=== PATIENT | male | born 1980 | race Caucasian/White ===

== ENCOUNTER 2016-06-25 05:35 | Day surgery (SDC) ==
[2016-06-25] MEDS ORDERED: NS 1,000 ML ONE (06:16)
[2016-06-25] MEDS ORDERED: DIPRIVAN 1% ONE ×2 (06:44→07:50)
[2016-06-25] MEDS ORDERED: FENTANYL ONE (06:44)
[2016-06-25] MEDS ORDERED: MYLICON DROPS (DOSE) MISC ONE (07:00)
[2016-06-25 08:37] VITALS: BP 128/76
[2016-06-25] MEDS ORDERED: XYLOCAINE-MPF 2% ONE (10:24)
--- NOTE | 2016-06-25 11:40 | OPERATIVE NOTE ---
PROCEDURE DATE: 06/25/2016 PREOPERATIVE DIAGNOSES: 1. Rectal pressure. 2. Hemorrhoids. POSTOPERATIVE DIAGNOSES: 1. Poor colonic prep. 2. Mild colitis. 3. Internal and external hemorrhoids. PROCEDURE PERFORMED: Colonoscopy. SURGEON: Raúl Christopher MD CAD DESIGN ENGINEER: None. ANESTHESIA: MAC anesthesia. FINDINGS: As noted above. COMPLICATIONS: None at the time of dictation. ESTIMATED BLOOD LOSS: Minimal. SPECIMENS: None. HISTORY: The patient is a 35-year-old male with rectal pressure and rectal pain with some external hemorrhoids noted on exam. The patient has tried conservative diet change but still had some pressure. It was felt the patient would benefit from colonoscopy the risks, benefits, and alternatives were discussed. He voiced understanding and wished to proceed with the procedure. DESCRIPTION OF PROCEDURE: After informed consent was obtained, the patient was brought to the endoscopy suite and placed on the endoscopy table. MAC anesthesia was then performed without complication. The patient was repositioned in the decubitus position. A formal time-out was then performed, confirming patient, date, and procedure. All were in agreement. At that time, attention was given to the rectum. A digital rectal exam was performed. No pathology was appreciated besides some mild external hemorrhoid. We then inserted the colonoscope and passed it all the way to the cecum without difficulty. We then fully retracted it, taking more than 6 minutes to view all surfaces. The overall prep was poor and we did see some mild colitis in the area of the sigmoid colon but no significant diverticulitis or stigmata of Crohn's or ulcerative colitis was noted. We retroflexed in the rectum and saw internal and external hemorrhoids but they were not terribly pronounced. There was no other pathology appreciated. No ulcers were appreciated in the rectal bed or masses to account for the patient's rectal pressure. We removed the scope. The patient tolerated the procedure well and was transferred to the recovery room in stable condition. Postoperatively, we will see the patient back in the office. Given his symptoms, this is likely probably related to his hemorrhoids. He will need hemorrhoid surgery. This will likely put him out of work for at least 1-2 weeks after his hemorrhoid surgery.
== END 2016-06-25 08:30 | disposition home or self-care (01) ==
LOC: OPS 05:35
PROVIDERS: ATTEND Surgery
DX: K64.4 Residual hemorrhoidal skin tags (principal); K64.8 Other hemorrhoids; K52.9 Noninfective gastroenteritis and colitis, unspecified; F17.210 Nicotine dependence, cigarettes, uncomplicated; K21.9 Gastro-esophageal reflux disease without esophagitis; I10 Essential (primary) hypertension
CPT/HCPCS: J3010; J7030